=== PATIENT | female | born 1995 | race Caucasian/White ===

== ENCOUNTER 2022-11-30 00:02 | Emergency (ER) | payer MEDICAID, OTHER ==
--- NOTE | 2022-11-30 00:10 | ERPHSYRPT ---
- History of Present Illness Time Seen by Provider: 11/30/22 00:10 Source: patient Exam Limitations: no limitations Physician History: This is a 27-year-old white female patient who is approximately 17 weeks . 2 days ago, the patient had some left nipple and left areola sharp shooting pains that subsided. However today, 11/29/2022, she had a few episodes of the same. She is concerned there may be infection or other issue. She has not had a fever. She is noted no nipple discharge. Quality: painful Severity: mild Location: other (Left areola and nipple) Possible Causes: other ( changes, early infection are possibilities) Associated Symptoms: denies symptoms Allergies/Adverse Reactions: No Known Drug Allergies Allergy (Verified 11/30/22 00:33) Home Medications: Vit 93/Iron Fum/Folic [ Formula Tablet] 1 each PO DAILY 11/30/22 [History] Travel Risk - International Travel Have you traveled outside of the country in past 3 weeks: No - Coronavirus Screening Are you exhibiting any of the following symptoms?: No Close contact with a COVID-19 positive Pt in past 14-21 Days: No - Review of Systems Constitutional: No Symptoms Eyes: No Symptoms Ears, Nose, & Throat: No Symptoms Respiratory: No Symptoms Cardiac: No Symptoms Abdominal/Gastrointestinal: No Symptoms Genitourinary Symptoms: No Symptoms Musculoskeletal: No Symptoms Skin: Other (Left nipple and areolar tenderness) Neurological: No Symptoms Psychological: No Symptoms Endocrine: No Symptoms Hematologic/Lymphatic: No Symptoms Immunological/Allergic: No Symptoms All Other Systems: Reviewed and Negative - Past Medical History Pertinent Past Medical History: Yes - Past Surgical History Past Surgical History: Yes - Nursing Vital Signs Nursing Vital Signs: Initial Vital Signs Temperature 98.0 F 11/30/22 00:15 Pulse Rate 136 H 11/30/22 00:15 Respiratory Rate 18 11/30/22 00:15 Blood Pressure 140/89 11/30/22 00:15 O2 Sat by Pulse Oximetry 97 11/30/22 00:15 Pain Scale Pain Intensity 0 - Physical Exam General Appearance: no apparent distress, alert, anxiety Eye Exam: PERRL/EOMI, eyes nml inspection Ears, Nose, Throat Exam: normal ENT inspection, moist mucous membranes Neck Exam: normal inspection, non-tender, supple, full range of motion Respiratory Exam: airway intact, No chest tenderness, No respiratory distress Cardiovascular Exam: tachycardia Gastrointestinal/Abdomen Exam: soft, normal bowel sounds, No tenderness Pelvic Exam: not done Rectal Exam: not done Extremity Exam: normal inspection, normal range of motion, pelvis stable Neurologic Exam: alert, oriented x 3, cooperative, director of product development II-XII nml as tested, nml cerebellar function, nml station & gait, sensation nml Skin Exam: other (Evaluation of bilateral areola and nipples show no redness. There is no evidence of cellulitis or infection. There is no drainage from either site.) Lymphatic Exam: No adenopathy SpO2 Interpretation: normal O2 Delivery: Room Air - Course Nursing assessment & vital signs reviewed: Yes Ordered Tests: Medication Summary Discontinued Medications Generic Name Dose Route Start Last Admin Trade Name Fremark PRN Reason Stop Dose Admin Acetaminophen 650 mg 11/30/22 00:49 11/30/22 00:52 Acetaminophen 325 Mg Tablet PO 11/30/22 00:50 650 mg STAT STA Administration Acetaminophen Confirm 11/30/22 00:50 Acetaminophen 325 Mg Tablet Administered 11/30/22 00:51 Dose 650 mg .ROUTE .STK-MED ONE - Progress Progress: unchanged, pain not gone completely, re-examined Progress Note: 11/30/22 00:56 This patient's medical issue is 1 of low complexity. Level complexity in the work-up performed is based on review of the patient's past medical history, review of the patient's medication list, review of the patient's drug allergy list, history of present illness and physical findings on examination. This patient work-up does not require any radiographic or laboratory studies. The patient has no evidence at this time of mastitis or ductal infection. The patient has not tried Tylenol. We will provide her with a dose of 650 mg of oral Tylenol here. She is to continue using 650 mg orally every 4 hours while awake. She may alternate ice and heat to this area. She is to call her primary care doctor and/or heating element builder later today on 11/30/2022, for further evaluation management instructions. I will call in a prescription for Keflex 500 mg orally 3 times a day for the next 7 days that she is only to fill if there is nipple drainage or evidence of cellulitis or infection. Counseled pt/family regarding: diagnosis, need for follow-up, rad results Medical Desision Making - Independent Historian Additional History obtained from: Spouse - Diagnostic Testing Diagnostic test were ordered, analyzed, and reviewed by me: No - Risk of complications The pt has a mod risk of morbidity or mortality based on: Need for prescription drug management - Departure Departure Disposition: Home Clinical Impression: Nipple pain Condition: Stable Critical Care Time: No Referrals: ЮЛИЯ HANNAH DO [Primary Care Provider] - Follow up/PCP as directed Additional Instructions: Use Tylenol 650 mg orally every 4 hours while awake. Call your primary care provider and/or your heating element builder today, 11/30/2022, for further management instructions. May alternate ice and heat to the site of tenderness. You may fill the Keflex prescription if you notice that there is increasing redness, increasing tenderness or nipple drainage. Prescriptions: Cephalexin Mh 500 mg [Keflex 500 mg] 500 mg PO TID #21 cap
[2022-11-30 00:33] VITALS: RESP 18; TEMP 98
[2022-11-30] MEDS ORDERED: TYLENOL 325 MG PO STA (00:49)
[2022-11-30] MEDS ORDERED: TYLENOL 325 MG ONE (00:50)
[2022-11-30 01:19] VITALS: BP 134/76; PULSE 105; O2SAT 98
== END 2022-11-30 01:09 | disposition home or self-care (01) ==
LOC: ED 00:02
DX: N64.4 Mastodynia (principal); Z33.1 Pregnant state, incidental
CPT/HCPCS: 99281; A9270-GY

== ENCOUNTER 2023-03-17 18:08 | Observation (INO) | payer MEDICAID ==
[2023-03-17 18:38] VITALS: BP 134/76; PULSE 121; RESP 20; TEMP 97.8; O2SAT 98
[2023-03-17 20:12] LABS: ADD URINE CULTURE? YES (NO); Appearance Cloudy (Clear); Bacteria Many /HPF (None Seen); Bilirubin Negative (Negative); Blood Negative (Negative); Epithelial Cells Few /HPF (None Seen); Glucose, Urine Negative (Negative); Hyaline Casts NONE SEEN /LPF (0-2); Ketones 15 (Negative); Leukocyte Esterase Large (Negative); Nitrite Positive (Negative); Protein,Urine Dip Trace (Negative); RBC 0-2 /HPF (0-5); Specific Gravity 1.015 (1.005-1.030); Urobilinogen 0.2 mg/dL (0.2); WBC 51-100 /HPF (0-5)
[2023-03-17 20:21] LABS: Amphetamine,Urine NEGATIVE (NEGATIVE); Barbiturate,Urine NEGATIVE (NEGATIVE); Benzodiazepine,Urine NEGATIVE (NEGATIVE); Cocaine,Urine NEGATIVE (NEGATIVE); Methadone,Urine NEGATIVE (NEGATIVE); Opiate,Urine NEGATIVE (NEGATIVE); PCP,Urine NEGATIVE (NEGATIVE); THC,Urine NEGATIVE (NEGATIVE)
[2023-03-17] MEDS ORDERED: KEFLEX 500 MG PO STA (20:22)
[2023-03-17] MEDS ORDERED: KEFLEX 500 MG ONE (20:29)
[2023-03-17] MEDS ORDERED: KEFLEX 500 MG PO ONE (20:31)
== END 2023-03-17 21:03 | disposition home or self-care (01) ==
LOC: OB 18:08
PROVIDERS: ADMIT Family Medicine; ATTEND Obstetrics & Gynecology
DX: Z34.03 Encounter for supervision of normal first pregnancy, third trimester (principal); Z3A.32 32 weeks gestation of pregnancy; Z59.82 Transportation insecurity
CPT/HCPCS: 80307; 81001; 87086; 99213; G0378; 87077; 87186; A9270-GY

== ENCOUNTER 2023-03-31 21:25 | Observation (INO) | payer MEDICAID, OTHER ==
--- NOTE | 2023-03-31 22:15 | ERPHSYRPT ---
- History of Present Illness Time Seen by Provider: 03/31/23 21:29 Historian: patient Exam Limitations: no limitations Patient Subjective Stated Complaint: pt states for the past 2 days she has been vomiting Triage Nursing Assessment: pt ambulated into the er; pt is axo x4; c/o vomiting; pt states burning pain to epigastric region; c/o N/V; pt denies diarrhea; abd is distended, soft, nontender; active bowel sounds in all quads; 35 weeks gestati on; heart tone 160 bpm; mucus membranes pink and moist; tachycardic Physician History: 28 years old 1 at 35 weeks gestation presented in the ER with 2 days his tory of intractable nausea vomiting. Patient reports having having acid reflux and burning sensation in the epigastric area/right upper quadrant followed by multiple episodes of nonprojectile, nonbilious vomiting without hematemesis. Unable to hold anything down. Patient denies any lower abdominal/pelvic pain. No vaginal bleeding or discharge. Normal movements as usual. No fever chills or sick contact reported. Allergies/Adverse Reactions: No Known Drug Allergies Allergy (Verified 03/31/23 22:43) Home Medications: Vit 93/Iron Fum/Folic [ Formula Tablet] 1 each PO DAILY 11/30/22 [History] Hx Tetanus, Diphtheria Vaccination/Date Given: Yes Hx Influenza Vaccination/Date Given: No Hx Pneumococcal Vaccination/Date Given: No Travel Risk - International Travel Have you traveled outside of the country in past 3 weeks: No - Coronavirus Screening Are you exhibiting any of the following symptoms?: Yes Symptoms: Vomiting/Diarrhea Close contact with a COVID-19 positive Pt in past 14-21 Days: No - Vaccine Status Have you recieved a Covid-19 vaccination: No - Review of Systems Constitutional: Fatigue, Weakness Eyes: No Symptoms Ears, Nose, & Throat: No Symptoms Respiratory: No Symptoms Cardiac: No Symptoms Abdominal/Gastrointestinal: Nausea, Vomiting Genitourinary Symptoms: No Symptoms Musculoskeletal: No Symptoms Skin: No Symptoms Neurological: No Symptoms Endocrine: No Symptoms Hematologic/Lymphatic: No Symptoms Immunological/Allergic: No Symptoms - Past Medical History Pertinent Past Medical History: Yes - Past Surgical History Past Surgical History: Yes - Social History Smoking Status: Light tobacco smoker How long have you smoked: Age 12 Exposure to second hand smoke: Yes Drug Use: none Patient Lives Alone: No - Female History Hx Now: Yes Gestational Age: 35 weeks - Nursing Vital Signs Nursing Vital Signs: Initial Vital Signs Pulse Rate 144 H 03/31/23 21:37 O2 Sat by Pulse Oximetry 97 03/31/23 21:37 Pain Scale Pain Intensity 9 - Physical Exam General Appearance: no apparent distress, alert Eye Exam: PERRL/EOMI Ears, Nose, Throat Exam: normal ENT inspection Neck Exam: normal inspection, non-tender, supple, full range of motion Respiratory Exam: normal breath sounds, lungs clear Cardiovascular Exam: normal heart sounds, tachycardia Gastrointestinal/Abdomen Exam: soft, normal bowel sounds, tenderness (Epigastric mild tenderness. No right upper quadrant tenderness.), other (Gravid uterus with heart tones in 150s) Back Exam: normal inspection, normal range of motion, No CVA tenderness Extremity Exam: normal inspection, normal range of motion Neurologic Exam: alert, oriented x 3, cooperative Skin Exam: normal color SpO2 Interpretation: normal SpO2: 97 O2 Delivery: Room Air Ordered Tests: Active Orders 24 hr Category Date Time Status IV Insertion STAT Care 03/31/23 22:51 Active NPO (ED) STAT Care 03/31/23 22:51 Active CBC W DIFF Stat Lab 03/31/23 22:00 Completed CMP Stat Lab 03/31/23 22:00 Completed LIPASE Stat Lab 03/31/23 22:00 Completed Lactic Acid Stat Lab 04/01/23 01:10 Completed TROPONIN Q4H Lab 04/01/23 03:00 Ordered TROPONIN Q4H Lab 04/01/23 07:00 Ordered TROPONIN Q4H Lab 03/31/23 22:00 Completed UA W/RFX UR CULTURE Stat Lab 03/31/23 23:06 Ordered VENOUS BLOOD GAS Stat Lab 04/01/23 01:10 Completed Transfer Order Routine Transfer 04/01/23 Ordered Medication Summary Generic Name Dose Route Start Last Admin Trade Name Freq PRN Reason Stop Dose Admin Lactated Ringer's 1,000 mls @ 150 mls/hr 04/01/23 01:00 04/01/23 00:40 Lactated Ringers IV 05/01/23 00:59 150 mls/hr .Q6H40M [facility] Administration Discontinued Medications Generic Name Dose Route Start Last Admin Trade Name Freq PRN Reason Stop Dose Admin Al Hydrox/Mg Hydrox/Simethicone Confirm 03/31/23 22:58 Mag Hydrox/Al Hydrox/Simeth 30 Ml Udcup Administered 03/31/23 22:59 Dose 30 ml .ROUTE .STK-MED ONE Famotidine 40 mg 03/31/23 22:51 03/31/23 22:58 Famotidine 20 Mg/1 Vial IV 03/31/23 22:52 40 mg STAT ONE Administration Famotidine Confirm 03/31/23 22:55 Famotidine 20 Mg/1 Vial Administered 03/31/23 22:56 Dose 20 mg IV .STK-MED ONE Famotidine Confirm 03/31/23 22:59 Famotidine 20 Mg/1 Vial Administered 03/31/23 23:00 Dose 20 mg IV .STK-MED ONE Sodium Chloride 1,000 mls @ 999 mls/hr 03/31/23 22:51 04/01/23 00:06 Sodium Chloride 0.9% 1000 Ml IV 03/31/23 23:51 Infused .Q1H1M STA Infusion Sodium Chloride Confirm 03/31/23 22:54 Sodium Chloride 0.9% 1000 Ml Administered 03/31/23 22:55 Dose 1,000 mls @ ud .ROUTE .STK-MED ONE Lactated Ringer's 1,000 mls @ 999 mls/hr 03/31/23 23:34 04/01/23 00:41 Lactated Ringers IV 04/01/23 00:34 Infused .Q1H1M ONE Infusion Lactated Ringer's Confirm 03/31/23 23:38 Lactated Ringers Administered 03/31/23 23:39 Dose 1,000 mls @ ud IV .STK-MED ONE Lidocaine HCl Confirm 03/31/23 22:56 Lidocaine Hcl 2% Viscous 15 Ml Udcup Administered 03/31/23 22:57 Dose 15 ml .ROUTE .STK-MED ONE Magnesium Hydroxide 45 ml 03/31/23 22:51 03/31/23 22:58 Mag Hydrx/Alum Hyd/Simeth/Lido 45 Ml Bottle PO 03/31/23 22:52 45 ml STAT ONE Administration Magnesium Hydroxide Confirm 03/31/23 22:55 Magnesium Hydroxide 30 Ml Udcup Administered 03/31/23 22:56 Dose 30 ml .ROUTE .STK-MED ONE Ondansetron HCl 4 mg 03/31/23 22:51 03/31/23 22:58 Ondansetron Hcl 4 Mg/2 Ml Vial IV 03/31/23 22:52 4 mg STAT ONE Administration Ondansetron HCl Confirm 03/31/23 22:58 Ondansetron Hcl 4 Mg/2 Ml Vial Administered 03/31/23 22:59 Dose 4 mg .ROUTE .STK-MED ONE Sodium Bicarbonate 50 meq 04/01/23 01:23 Sodium Bicarbonate 1 Meq/Ml 50ml Syringe IV 04/01/23 01:24 STAT ONE Lab/Rad Data: Laboratory Result Diagrams 03/31/23 22:00 03/31/23 22:00 Laboratory Results 04/01/23 03/31/23 03/31/23 Range/Units 01:10 23:40 22:00 WBC (4.0-10.5) x10^3/uL RBC (4.1-5.4) x10^6/uL Hgb (12.0-16.0) g/dL Hct (35-47) % MCV (78-100) fL MCH (26-32) pg MCHC (32-36) g/dL RDW (11.5-14.0) % Plt Count (150-450) x10^3/uL MPV (7.5-11.0) fL Gran % (36.0-66.0) % Immature Gran % (Auto) (0.00-0.4) % Nucleat RBC Rel Count (0.00-0.1) % Eos # (Auto) (0-0.5) x10^3/uL Immature Gran # (Auto) (0.00-0.03) x10^3u/L Absolute Lymphs (auto) (1.0-4.6) x10^3/uL Absolute Monos (auto) (0.0-1.3) x10^3/uL Absolute Nucleated RBC (0.00-0.01) x10^3u/L Lymphocytes % (24.0-44.0) % Monocytes % (0.0-12.0) % Eosinophils % (0.00-5.0) % Basophils % (0.0-0.4) % Absolute Granulocytes (1.4-6.9) x10^3/uL Basophils # (0-0.4) x10^3/uL pO2/FiO2 Ratio 21.0 % VBG pH 7.26 L (7.32-7.42) VBG pCO2 at Pat Temp 19 L* (42-55) mm/Hg VBG pO2 at Pat Temp 93 H (25-40) mm/Hg VBG HCO3 8.5 L* (22-28) meq/L VBG O2 Sat (Ami) 97.6 (95-100) VBG Base Excess -15.9 L (-2.0-2.0) VBG Hemoglobin 16.5 VBG Carboxyhemoglobin 3.4 (0.0-6.9) % T HGB POC Potassium 4.9 (3.5-5.1) Sodium (137-145) mmol/L Potassium (3.5-5.1) mmol/L Chloride (98-107) mmol/L Carbon Dioxide (22-30) mmol/L Anion Gap (5-15) MEQ/L BUN (7-17) mg/dL Creatinine (0.52-1.04) mg/dL Estimated GFR ML/MIN Glucose (74-106) mg/dL Lactic Acid 1.7 (0.4-2.0) Calcium (8.4-10.2) mg/dL Total Bilirubin (0.2-1.3) mg/dL AST (14-36) U/L ALT (0-35) U/L Alkaline Phosphatase (38-126) U/L Troponin I < 0.012 (0.000-0.034) ng/mL Serum Total Protein (6.3-8.2) g/dL Albumin (3.5-5.0) g/dL Lipase (23-300) U/L Influenza Type A Ag NEGATIVE (NEGATIVE) Influenza Type B Ag NEGATIVE (NEGATIVE) RSV (PCR) NEGATIVE (NEGATIVE) SARS-CoV-2 (PCR) NEGATIVE (NEGATIVE) 03/31/23 03/31/23 Range/Units 22:00 22:00 WBC 14.0 H (4.0-10.5) x10^3/uL RBC 4.88 (4.1-5.4) x10^6/uL Hgb 13.6 (12.0-16.0) g/dL Hct 41.7 (35-47) % MCV 85.5 (78-100) fL MCH 27.9 (26-32) pg MCHC 32.6 (32-36) g/dL RDW 13.2 (11.5-14.0) % Plt Count 483 H (150-450) x10^3/uL MPV 10.8 (7.5-11.0) fL Gran % 74.6 H (36.0-66.0) % Immature Gran % (Auto) 0.6 H (0.00-0.4) % Nucleat RBC Rel Count 0.0 (0.00-0.1) % Eos # (Auto) 0.16 (0-0.5) x10^3/uL Immature Gran # (Auto) 0.08 H (0.00-0.03) x10^3u/L Absolute Lymphs (auto) 2.29 (1.0-4.6) x10^3/uL Absolute Monos (auto) 1.00 (0.0-1.3) x10^3/uL Absolute Nucleated RBC 0.00 (0.00-0.01) x10^3u/L Lymphocytes % 16.4 L (24.0-44.0) % Monocytes % 7.2 (0.0-12.0) % Eosinophils % 1.1 (0.00-5.0) % Basophils % 0.1 (0.0-0.4) % Absolute Granulocytes 10.42 H (1.4-6.9) x10^3/uL Basophils # 0.02 (0-0.4) x10^3/uL pO2/FiO2 Ratio % VBG pH (7.32-7.42) VBG pCO2 at Pat Temp (42-55) mm/Hg VBG pO2 at Pat Temp (25-40) mm/Hg VBG HCO3 (22-28) meq/L VBG O2 Sat (Ami) (95-100) VBG Base Excess (-2.0-2.0) VBG Hemoglobin VBG Carboxyhemoglobin (0.0-6.9) % T HGB POC Potassium (3.5-5.1) Sodium 132 L (137-145) mmol/L Potassium 3.6 (3.5-5.1) mmol/L Chloride 108 H (98-107) mmol/L Carbon Dioxide 6 L* (22-30) mmol/L Anion Gap 21.9 H (5-15) MEQ/L BUN 3 L (7-17) mg/dL Creatinine 0.50 L (0.52-1.04) mg/dL Estimated GFR 132.6 ML/MIN Glucose 100 (74-106) mg/dL Lactic Acid (0.4-2.0) Calcium 10.8 H (8.4-10.2) mg/dL Total Bilirubin 0.30 (0.2-1.3) mg/dL AST 20 (14-36) U/L ALT 15 (0-35) U/L Alkaline Phosphatase 229 H (38-126) U/L Troponin I (0.000-0.034) ng/mL Serum Total Protein 8.0 (6.3-8.2) g/dL Albumin 3.9 (3.5-5.0) g/dL Lipase 130 (23-300) U/L Influenza Type A Ag (NEGATIVE) Influenza Type B Ag (NEGATIVE) RSV (PCR) (NEGATIVE) SARS-CoV-2 (PCR) (NEGATIVE) - Progress Progress: improved Progress Note: 04/01/23 01:02 28 years old 1 para 0 at 35 weeks gestation is evaluated for vomiting with epigastric burning sensations since yesterday. Patient has history of acid reflux. Patient was tachycardic on presentation with no significant tenderness in the abdomen with good bowel sounds. No lower abdominal tenderness. heart tones in 150s. She is given fluid bolus x 2, on reevaluation she is feeling much better. She is also given GI cocktail and Pepcid. On reevaluation her heart rate is improved and 110s. Workup showed white count of 14, chemistries showed potassium of 3.2 and sodium in 130s with a bicarb of 6 and a glucose of 100, gap of 21.9. No renal failure. Normal liver functions. Normal lipase. Patient was placed on tocometer with no contractions noticed. I believe patient's elevated gap and low bicarb is secondary to dehydration, not in DKA. I have discussed with Dr. Kandace Hardin, reviewed history, workup and agreed with admission. I have also discussed with Dr. Myers and OB would be available if needed but since patient issue is more of a medical she will be admitted under medical service as primary and OB would be a consult if needed. 04/01/23 01:26 Patient has a venous pH of 7.26 and bicarb of 8.5 with a lactate of 1.7. Discussed with Dr. Mao, will give an amp of bicarb and she will be placed on bicarb drip once patient is hospital. As per hospitalist I have discussed with OB again and reviewed these labs, recommended continue with fluid resuscitation per hospitalist recommendations and patient is being transferred to the floor. On reevaluation patient is resting comfortably. She is not in any pain. Ab dominal exam remained nonsurgical. heart tones are 152 with no contractions On the monitor. Discussed with Dr.: Carol (40), Elle (99) Will see patient in: hospital (observation) (99) Counseled pt/family regarding: lab results, diagnosis, need for follow-up, rad results Medical Desision Making - Independent Historian Additional History obtained from: Spouse - Discussion of managment Care discussed with:: specialist ( and hospitalist ) Reviewed:: Test results Agreed on:: Treatment plan, place in obs Will see patient: in hospital - Diagnostic Testing Diagnostic test were ordered, analyzed, and reviewed by me: Yes - Risk of complications The pt has a high risk of morbidity or mortality based on: Decision regarding hospitilization or escalation of hosp level of care - Departure Departure Disposition: Observation Clinical Impression: Vomiting affecting , GERD with esophagitis, Dehydration Condition: Stable Critical Care Time: No Referrals: HERMINIO SMITH MD [Primary Care Provider] - Follow up/PCP as directed
[2023-03-31] MEDS ORDERED: Sodium Chloride 0.9% 1000 ML 1,000 ML IV STA (22:51)
[2023-03-31] MEDS ORDERED: Pepcid 20 MG VIAL IV ONE ×3 (22:51→22:59)
[2023-03-31] MEDS ORDERED: Zofran 4 MG/2 ML VIAL IV ONE (22:51)
[2023-03-31] MEDS ORDERED: GI COCKTAIL 45 ML (Maalox/Lidocaine) PO ONE (22:51)
[2023-03-31] MEDS ORDERED: Sodium Chloride 0.9% 1000 ML 1,000 ML ONE (22:54)
[2023-03-31] MEDS ORDERED: MILK OF MAGNESIA 30 ML ONE (22:55)
[2023-03-31] MEDS ORDERED: XYLOCAINE VISCOUS 2% 15 ML CUP ONE (22:56)
[2023-03-31 22:57] LABS: Absolute Neutrophil Ct (ANC) 10.42 x10^3/uL (1.4-6.9); BASOPHIL % 0.1 % (0.0-0.4); Basophil (Absolute #) 0.02 x10^3/uL (0-0.4); Eosinophil % 1.1 % (0.00-5.0); Eosinophil (Absolute #) 0.16 x10^3/uL (0-0.5); Hematocrit 41.7 % (35-47); Hemoglobin 13.6 g/dL (12.0-16.0); IMMATURE GRAN # 0.08 x10^3u/L (0.00-0.03); IMMATURE GRAN % 0.6 % (0.00-0.4); Lymphocyte (Absolute #) 2.29 x10^3/uL (1.0-4.6); Lymphocytes % 16.4 % (24.0-44.0); Mean Cell Volume 85.5 fL (78-100); Mean Corpuscular Hemoglobin 27.9 pg (26-32); Mean Corpuscular Hgb Concent. 32.6 g/dL (32-36); Mean Platelet Volume 10.8 fL (7.5-11.0); Monocytes % 7.2 % (0.0-12.0); Neutrophil % 74.6 % (36.0-66.0); Platelet Count 483 x10^3/uL (150-450); Red Blood Count 4.88 x10^6/uL (4.1-5.4); Red Cell Distribution Width 13.2 % (11.5-14.0)
[2023-03-31] MEDS ORDERED: Zofran 4 MG/2 ML VIAL ONE (22:58)
[2023-03-31] MEDS ORDERED: MAALOX ES 30 ML UNIT DOSE ONE (22:58)
[2023-03-31 23:03] LABS: ALBUMIN 3.9 g/dL (3.5-5.0); ANION GAP 21.9 MEQ/L (5-15); BILIRUBIN,TOTAL 0.3 mg/dL (0.2-1.3); Calcium 10.8 mg/dL (8.4-10.2); Creatinine 1 0.5 mg/dL (0.52-1.04); EST GLOMERULAR FILTRATION RATE 132.6 ML/MIN; Potassium 3.6 mmol/L (3.5-5.1)
[2023-03-31] MEDS ORDERED: Lactated Ringers 1,000 ML IV ONE ×2 (23:34→23:38)
[2023-04-01 00:22] LABS: INFLUENZA A NEGATIVE (NEGATIVE); INFLUENZA B NEGATIVE (NEGATIVE); RESPIRATORY SYNCTIAL VIRUS NEGATIVE (NEGATIVE); SARS-CoV-2 Xpert Express NEGATIVE (NEGATIVE)
[2023-04-01] MEDS ORDERED: Lactated Ringers 1,000 ML IV ONE (00:40)
[2023-04-01] MEDS ORDERED: Lactated Ringers 1,000 ML IV SCH (01:00)
[2023-04-01 01:16] LABS: Lactic Acid 1.7 (0.4-2.0); VBG BASE EXCESS -15.9 (-2.0-2.0); VBG CARBOXYHEMOGLOBIN 3.4 % T HGB (0.0-6.9); VBG HCO3- 8.5 meq/L (22-28); VBG HEMOGLOBIN 16.5; VBG O2 SATURATION 97.6 (95-100); VBG POTASSIUM 4.9 (3.5-5.1); VBG pH 7.26 (7.32-7.42)
[2023-04-01] MEDS ORDERED: SODIUM BICARBONATE 50 MEQ/50 ML ABBOJECT IV ONE ×3 (01:23→02:59)
[2023-04-01 01:53] LABS: Appearance Cloudy (Clear); Bacteria Moderate /HPF (None Seen); Bilirubin Negative (Negative); Blood Moderate (Negative); Epithelial Cells Moderate /HPF (None Seen); Glucose, Urine Negative (Negative); Ketones >=160 (Negative); Leukocyte Esterase Moderate (Negative); Nitrite Negative (Negative); Ph 5.5 (4.6-8.0); Protein,Urine Dip 100 (Negative); Specific Gravity 1.015 (1.005-1.030); Urobilinogen 0.2 mg/dL (0.2); WBC 51-100 /HPF (0-5)
[2023-04-01 01:55] LABS: ADD URINE CULTURE? YES (NO)
[2023-04-01] MEDS ORDERED: Sodium Bicarbonate 50 MEQ/50 ML VIAL*** 150 MEQ in Dextrose 5%/Water IV Soln. 1000 ML 1... IV SCH ×2 (02:00→03:00)
[2023-04-01] MEDS ORDERED: Docusate Sodium 100 MG PO PRN (02:50)
[2023-04-01] MEDS ORDERED: TYLENOL 325 MG PO PRN (02:50)
[2023-04-01] MEDS ORDERED: Zofran 4 MG/2 ML VIAL IV PRN (02:50)
[2023-04-01] MEDS ORDERED: Dextrose 5%/Water IV Soln. 1000 ML 1,000 ML IV ONE (03:00)
[2023-04-01 03:15] VITALS: BP 146/86; PULSE 146; RESP 20; TEMP 98.1; O2SAT 96
[2023-04-01] MEDS ORDERED: Sodium Bicarbonate 50 MEQ/50 ML VIAL*** 150 MEQ in Dextrose 5%/Water IV Soln. 1000 ML 8... IV SCH (03:18)
--- NOTE | 2023-04-01 03:25 | PCM.HP ---
History of Present Illness - Chief Complaint Chief Complaint: Dehydration in , of intractable vomiting Date: 04/01/23 History of Present Illness: This is a 28-year-old female 35 weeks with nausea and vomiting x 2 days. Patient reports acid reflux and burning sensation in epigastric area in additional to n/v x2 days. She reports this occurred after eating food from food bank and thinks the apple pie may of made her and her fiance sick. On arrival she was tachycardic in the 130s and normotensive. Labs significant for WBC 14, platelets 43, sodium 132, serum bicarb 6, BUN 3, creatinine 1.5, calcium 10, negative troponin, lipase 130, AST 20, ALT 15, alk phos 229. Influenza antigen and RSV and COVID PCR were negative ABG 7.2 09/17/92. Lactate 1.7.She was given Pepcid, r, GI cocktail, Zofran, bicarb push heart tones were checked and found to be 160 bpm. - Review of Systems Eyes: No Symptoms Ears, Nose, & Throat: No Symptoms Respiratory: No Symptoms Cardiac: No Symptoms Abdominal/Gastrointestinal: Nausea, Vomiting, No Diarrhea Genitourinary Symptoms: No Symptoms Musculoskeletal: No Symptoms Skin: No Symptoms Neurological: No Symptoms Psychological: No Symptoms Medications & Allergies Home Medications: Home Medication List Vit 93/Iron Fum/Folic [ Formula Tablet] 1 each PO DAILY 11/30/22 [History Confirmed 03/31/23] Allergies/Adverse Reactions: Allergies Allergy/AdvReac Type Severity Reaction Status Date / Time No Known Drug Allergies Allergy Verified 03/31/23 22:43 - Past Medical History Past Medical History: Yes Neurological History: No Pertinent History ENT History: No Pertinent History Cardiac History: No Pertinent History Respiratory History: Asthma Endocrine Medical History: No Pertinent History Musculoskelatal History: No Pertinent History GI Medical History: No Pertinent History History: No Pertinent History Pyscho-Social History: No Pertinent History Reproductive Disorders: No Pertinent History - Female History Are you now?: Yes Gestational Age: 35 weeks - Past Surgical History Past Surgical History: Yes Neuro Surgical History: No Pertinent History Cardiac History: No Pertinent History Respiratory Surgery: No Pertinent History GI Surgical History: No Pertinent History Genitourinary Surgical Hx: No Pertinent History Musculskeletal Surgical Hx: No Pertinent History Female Surgical History: No Pertinent History - Social History Smoking Status: Current some day smoker How long have you smoked: 16 years Exposure to second hand smoke: Yes Alcohol: None Drug Use: none - Physical Exam Vital Signs: Vital Signs - 24 hr Temp Pulse Resp BP BP Pulse Ox 04/01/23 02:44 98.1 F 146 H 20 146/86 96 04/01/23 01:29 97 04/01/23 01:00 131 H 141/101 100 04/01/23 00:30 108/92 100 04/01/23 00:15 125/81 100 04/01/23 00:14 99 04/01/23 00:10 83 L 04/01/23 00:07 100 04/01/23 00:01 125 H 100 03/31/23 23:38 123/96 82 L 03/31/23 23:37 99 03/31/23 23:32 100 03/31/23 23:14 130 H 125/96 100 03/31/23 23:13 100 03/31/23 23:10 99 03/31/23 23:00 90 L 03/31/23 22:50 100 03/31/23 22:46 100 03/31/23 21:37 144 H 97 General Appearance: no apparent distress Neurologic Exam: alert, oriented x 3 Eye Exam: PERRL/EOMI Ears, Nose, Throat Exam: normal ENT inspection Respiratory Exam: normal breath sounds Cardiovascular Exam: regular rate/rhythm Gastrointestinal/Abdomen Exam: soft, other (gravid) Extremity Exam: swelling Skin Exam: normal color Results - Labs Lab/Micro Results: Lab Results-Last 24 Hours 03/31/23 03/31/23 03/31/23 Range/Units 22:00 22:00 22:00 WBC 14.0 H (4.0-10.5) x10^3/uL RBC 4.88 (4.1-5.4) x10^6/uL Hgb 13.6 (12.0-16.0) g/dL Hct 41.7 (35-47) % MCV 85.5 (78-100) fL MCH 27.9 (26-32) pg MCHC 32.6 (32-36) g/dL RDW 13.2 (11.5-14.0) % Plt Count 483 H (150-450) x10^3/uL MPV 10.8 (7.5-11.0) fL Gran % 74.6 H (36.0-66.0) % Immature Gran % (Auto) 0.6 H (0.00-0.4) % Nucleat RBC Rel Count 0.0 (0.00-0.1) % Eos # (Auto) 0.16 (0-0.5) x10^3/uL Immature Gran # (Auto) 0.08 H (0.00-0.03) x10^3u/L Absolute Lymphs (auto) 2.29 (1.0-4.6) x10^3/uL Absolute Monos (auto) 1.00 (0.0-1.3) x10^3/uL Absolute Nucleated RBC 0.00 (0.00-0.01) x10^3u/L Lymphocytes % 16.4 L (24.0-44.0) % Monocytes % 7.2 (0.0-12.0) % Eosinophils % 1.1 (0.00-5.0) % Basophils % 0.1 (0.0-0.4) % Absolute Granulocytes 10.42 H (1.4-6.9) x10^3/uL Basophils # 0.02 (0-0.4) x10^3/uL pO2/FiO2 Ratio % VBG pH (7.32-7.42) VBG pCO2 at Pat Temp (42-55) mm/Hg VBG pO2 at Pat Temp (25-40) mm/Hg VBG HCO3 (22-28) meq/L VBG O2 Sat (Ami) (95-100) VBG Base Excess (-2.0-2.0) VBG Hemoglobin VBG Carboxyhemoglobin (0.0-6.9) % T HGB POC Potassium (3.5-5.1) Sodium 132 L (137-145) mmol/L Potassium 3.6 (3.5-5.1) mmol/L Chloride 108 H (98-107) mmol/L Carbon Dioxide 6 L* (22-30) mmol/L Anion Gap 21.9 H (5-15) MEQ/L BUN 3 L (7-17) mg/dL Creatinine 0.50 L (0.52-1.04) mg/dL Estimated GFR 132.6 ML/MIN Glucose 100 (74-106) mg/dL Lactic Acid (0.4-2.0) Calcium 10.8 H (8.4-10.2) mg/dL Total Bilirubin 0.30 (0.2-1.3) mg/dL AST 20 (14-36) U/L ALT 15 (0-35) U/L Alkaline Phosphatase 229 H (38-126) U/L Troponin I < 0.012 (0.000-0.034) ng/mL Serum Total Protein 8.0 (6.3-8.2) g/dL Albumin 3.9 (3.5-5.0) g/dL Lipase 130 (23-300) U/L Urine Color (Yellow) Urine Appearance (Clear) Urine pH (4.6-8.0) Ur Specific [place] (1.005-1.030) Urine Protein (Negative) Urine Glucose (UA) (Negative) mg/dL Urine Ketones (Negative) Urine Blood (Negative) Urine Nitrite (Negative) Urine Bilirubin (Negative) Urine Urobilinogen (0.2) mg/dL Ur Leukocyte Esterase (Negative) U Hyaline Cast (Auto) (0-2) /LPF Urine Microscopic RBC (0-5) /HPF Urine Microscopic WBC (0-5) /HPF Ur Epithelial Cells (None Seen) /HPF Urine Bacteria (None Seen) /HPF Urine Culture Reflexed (NO) Influenza Type A Ag (NEGATIVE) Influenza Type B Ag (NEGATIVE) RSV (PCR) (NEGATIVE) SARS-CoV-2 (PCR) (NEGATIVE) 03/31/23 03/31/23 04/01/23 Range/Units 23:06 23:40 01:10 WBC (4.0-10.5) x10^3/uL RBC (4.1-5.4) x10^6/uL Hgb (12.0-16.0) g/dL Hct (35-47) % MCV (78-100) fL MCH (26-32) pg MCHC (32-36) g/dL RDW (11.5-14.0) % Plt Count (150-450) x10^3/uL MPV (7.5-11.0) fL Gran % (36.0-66.0) % Immature Gran % (Auto) (0.00-0.4) % Nucleat RBC Rel Count (0.00-0.1) % Eos # (Auto) (0-0.5) x10^3/uL Immature Gran # (Auto) (0.00-0.03) x10^3u/L Absolute Lymphs (auto) (1.0-4.6) x10^3/uL Absolute Monos (auto) (0.0-1.3) x10^3/uL Absolute Nucleated RBC (0.00-0.01) x10^3u/L Lymphocytes % (24.0-44.0) % Monocytes % (0.0-12.0) % Eosinophils % (0.00-5.0) % Basophils % (0.0-0.4) % Absolute Granulocytes (1.4-6.9) x10^3/uL Basophils # (0-0.4) x10^3/uL pO2/FiO2 Ratio 21.0 % VBG pH 7.26 L (7.32-7.42) VBG pCO2 at Pat Temp 19 L* (42-55) mm/Hg VBG pO2 at Pat Temp 93 H (25-40) mm/Hg VBG HCO3 8.5 L* (22-28) meq/L VBG O2 Sat (Ami) 97.6 (95-100) VBG Base Excess -15.9 L (-2.0-2.0) VBG Hemoglobin 16.5 VBG Carboxyhemoglobin 3.4 (0.0-6.9) % T HGB POC Potassium 4.9 (3.5-5.1) Sodium (137-145) mmol/L Potassium (3.5-5.1) mmol/L Chloride (98-107) mmol/L Carbon Dioxide (22-30) mmol/L Anion Gap (5-15) MEQ/L BUN (7-17) mg/dL Creatinine (0.52-1.04) mg/dL Estimated GFR ML/MIN Glucose (74-106) mg/dL Lactic Acid 1.7 (0.4-2.0) Calcium (8.4-10.2) mg/dL Total Bilirubin (0.2-1.3) mg/dL AST (14-36) U/L ALT (0-35) U/L Alkaline Phosphatase (38-126) U/L Troponin I (0.000-0.034) ng/mL Serum Total Protein (6.3-8.2) g/dL Albumin (3.5-5.0) g/dL Lipase (23-300) U/L Urine Color Yellow (Yellow) Urine Appearance Cloudy A (Clear) Urine pH 5.5 (4.6-8.0) Ur Specific [place] 1.015 (1.005-1.030) Urine Protein 100 A (Negative) Urine Glucose (UA) Negative (Negative) mg/dL Urine Ketones >=160 A (Negative) Urine Blood Moderate A (Negative) Urine Nitrite Negative (Negative) Urine Bilirubin Negative (Negative) Urine Urobilinogen 0.2 (0.2) mg/dL Ur Leukocyte Esterase Moderate A (Negative) U Hyaline Cast (Auto) 11-20 (0-2) /LPF Urine Microscopic RBC 6-10 A (0-5) /HPF Urine Microscopic WBC 51-100 A (0-5) /HPF Ur Epithelial Cells Moderate A (None Seen) /HPF Urine Bacteria Moderate A (None Seen) /HPF Urine Culture Reflexed YES (NO) Influenza Type A Ag NEGATIVE (NEGATIVE) Influenza Type B Ag NEGATIVE (NEGATIVE) RSV (PCR) NEGATIVE (NEGATIVE) SARS-CoV-2 (PCR) NEGATIVE (NEGATIVE) - Other Procedures and Tests Respiratory Therapy 04/01/23 03:15 Smoking Cessation Education ONCE Assessment/Plan (1) GERD with esophagitis Current Visit: Yes Status: Acute Code(s): K21.00 - GASTRO-ESOPHAGEAL REFLUX DIS WITH ESOPHAGITIS, WITHOUT BLEED (2) Vomiting affecting Current Visit: Yes Status: Acute Assessment & Plan: ASSESSMENT # Intractable nausea vomiting # Severe metabolic acidosis # Hyponatremia # Leukocytosis # UTI # 35 weeks PLAN -Antiemetics -Bicarb drip after initial IV fluid resuscitation -Follow BMP -OB aware of admission, no further recommendations -Ceftriaxone PPX: Lovenox Entire encounter performed via telemedicine Code(s): O21.9 - VOMITING OF , UNSPECIFIED Telemedicine Encounter - Telemedicine Encounter Telemedicine Encounter: The entirety of this encounter was performed via Telemedicine"
[2023-04-01] MEDS ORDERED: ROCEPHIN 1 Gm-D5w 50 ml Bag** 1 G/50 ML IVPB IV SCH (10:00)
[2023-04-01] MEDS ORDERED: IRON FUM PO SCH (10:00)
[2023-04-01] MEDS ORDERED: [UNRECOGNIZED DRUG - OTHER] PO SCH (10:00)
[2023-04-01] MEDS ORDERED: PRENATAL VIT PO SCH (10:00)
[2023-04-01] MEDS ORDERED: FOLIC PO SCH (10:00)
[2023-04-01] MEDS ORDERED: ENOXAPARIN SODIUM SQ SCH (10:00)
[2023-04-01] MEDS ORDERED: Pepcid 20 MG PO SCH (10:00)
== END 2023-04-01 04:15 | disposition home or self-care (01) ==
LOC: ED 21:25 → MED SURG 04-01 02:07
PROVIDERS: ADMIT Internal Medicine; ATTEND Internal Medicine
DX: K21.00 Gastro-esophageal reflux disease with esophagitis, without bleeding (principal); O21.9 Vomiting of pregnancy, unspecified; E87.1 Hypo-osmolality and hyponatremia; D72.829 Elevated white blood cell count, unspecified; N39.0 Urinary tract infection, site not specified; Z3A.35 35 weeks gestation of pregnancy; Z79.899 Other long term (current) drug therapy; Z20.828 Contact with and (suspected) exposure to other viral communicable diseases
CPT/HCPCS: 0241U; 36000; 36415; 80053; 81001; 82805; 83605; 83690; 84484; 85025; 87086; 96360; 96374; 99285; 87077; 87186; 93268; 96361; 96375; J0696; J2405; A9270-GY; G0378